=== PATIENT | female | born 1950 | race Two or more races ===

== ENCOUNTER 2023-04-12 10:05 | Day surgery (SDC) | payer OTHER ==
[2023-04-11 09:53] LABS: HEMATOCRIT 35.9 % (36.0-45.00); HEMOGLOBIN 12.2 g/dL (12.0-15.00); MEAN CELL VOLUME 84.1 fL (80.00-100.00); MEAN CORPUSCULAR HEMOGLOBIN 28.5 pg (27.00-32.0); MEAN CORPUSCULAR HGB CONC 33.8 g/dl (32.0-36.0); PLATELET COUNT 301 K/uL (150-450); RED BLOOD COUNT 4.27 M/uL (4.00-6.00); RED CELL DISTRIBUTION WIDTH 14.6 % (11.5-14.5)
[2023-04-11 10:40] LABS: URINE APPEARANCE Clear; URINE BILIRRUBIN Negative (NEGATIVE); URINE BLOOD Negative; URINE COLOR Yellow; URINE GLUCOSE Negative (NEGATIVE); URINE LEUKOCYTE Negative; URINE NITRATE Negative; URINE PROTEIN Negative (NEGATIVE)
[2023-04-11 10:44] LABS: URINE BACTERIA 759.7 uL (0.0-1933); URINE EPITHELIAL CELLS 32.2 uL (0.0-38.8); URINE RBC 9.3 uL (0.0-20.8); URINE WBC 9.7 uL (0.0-23.2)
[2023-04-11 10:44] LABS: INR 1.03; PARTIAL THROMBOPLASTIN TIME 29.9 SECONDS (22.0-34.0); PROTHROMBIN TIME 10.8 SECONDS (9.0-11.5)
[2023-04-11 11:02] LABS: ALBUMIN 3.5 gm/dL (3.4-5.0); BILIRUBIN TOTAL 0.55 mg/dL (0.3-1.2); CREATININE SERUM 0.69 mg/dL (0.55-1.02); GFR 83.63; GLOBULINA 2.9 G/DL (2.4-3.5); POTASSIUM 3.86 mEq/L (3.5-5.1); TOTAL PROTEIN 6.4 gm/dL (6.4-8.2)
[2023-04-11 11:13] LABS: URINE CRYSTALS MODERATE /HPF
[~2023-04-12] VITALS: Ht 162.6 cm; Wt 83.5 kg
[~2023-04-12 10:05] MED LIST: COZAAR25 MG PO
== END 2023-04-13 12:30 | disposition home or self-care (01) ==
LOC: CIR.AMB 10:05
PROVIDERS: ATTEND Orthopaedic Surgery Hand Surgery
DX: S52.332A Displaced oblique fracture of shaft of left radius, initial encounter for closed fracture (principal); E11.9 Type 2 diabetes mellitus without complications; E78.00 Pure hypercholesterolemia, unspecified; Z20.822 Contact with and (suspected) exposure to COVID-19; I10 Essential (primary) hypertension
CPT/HCPCS: 25515; L8699